=== PATIENT | male | born 1960 | race Caucasian/White ===

== ENCOUNTER 2019-09-10 18:02 | Emergency (ER) | payer SELFPAY ==
[~2019-09-10] VITALS: Ht 170.2 cm; Wt 66.0 kg
[2019-09-11] MEDS ORDERED: DIPHENHYDRAMINE 25MG CAPSULE PO ONE (02:00)
[2019-09-11 03:45] VITALS: BP 116/68
== END 2019-09-11 04:12 | disposition home or self-care (01) ==
LOC: ER 18:02
DX: L50.0 Allergic urticaria (principal); H10.32 Unspecified acute conjunctivitis, left eye; R03.0 Elevated blood-pressure reading, without diagnosis of hypertension
CPT/HCPCS: 99283; Q0163